=== PATIENT | female | born 1940 | race Caucasian/White ===

== ENCOUNTER 2016-07-22 17:22 | Emergency (ER) | payer OTHER ==
[~2016-07-22] VITALS: Ht 160 cm; Wt 86.4 kg
[~2016-07-22 17:22] MED LIST: ASPIR-MOX IB C325 MG PO; Ativan PO; BUMETANIDE1 M1 PO; COZAAR100 MG PO; CREON DR 12,001 EAC1 PO; CRESTOR40 MG PO; Ceftin PO; Creon 12 PO; DuoNeb IH; ECOTRIN325 MG PO; Ecotrin PO; GLYBURIDE5 MG PO; JANUMET XR 50-1 EACH; JANUMET XR 50-1 EACH PO; Janumet 50/500 PO; K-DUR10 ME2 PO; K-DUR10 MEQ PO; LEXAPRO10 MG PO; Lexapro PO; Lipitor PO; Maalox, Mylanta PO; Nitrostat,NitroQuick SL; Nizoral 2% Cream TP; PROTONIX40 MG PO; Protonix PO; TOPROL XL50 MG PO; TYLENOL REGULA325 MG PO; VYTORIN 10/11 TABLET PO; Zithromax PO
[2016-07-22] MEDS ORDERED: NAPROXEN500 MG PO (18:43)
[2016-07-22 19:31] VITALS: BP 144/71
== END 2016-07-22 19:31 | disposition home or self-care (01) ==
LOC: EME 17:22 → EXP 17:22
DX: S93.402A Sprain of unspecified ligament of left ankle, initial encounter (principal); W01.0XXA Fall on same level from slipping, tripping and stumbling without subsequent striking against object, initial encounter; E11.9 Type 2 diabetes mellitus without complications; G20 Parkinson's disease; Z79.4 Long term (current) use of insulin
CPT/HCPCS: 73610; 99281; 99284

== ENCOUNTER 2016-09-17 14:13 | Inpatient (IN) | payer OTHER ==
[~2016-09-17] VITALS: Ht 162.6 cm; Wt 82.6 kg
[~2016-09-17 14:13] MED LIST changes: +NAPROXEN500 MG PO
[2016-09-17 15:17] LABS: HEMATOCRIT 41.2 % (36.0-46.0); MCH 28.8 PG (29.0-34.0); MCHC 31.1 G/DL (30.0-36.0); MCV 92.8 FL (83-99); MEAN PLAT.VOLUME 9.8 uM^3 (9.5-12.4); PLATELET COUNT 167 K/uL (156-360); RBC DIS.WIDTH-CV 13.9 % (11.8-14.6); RBC DIS.WIDTH-SD 47.5 % (39-53); RED BLOOD COUNT 4.44 M/uL (3.80-5.20); WHITE BLOOD COUNT 7.5 K/uL (4.1-10.2)
[2016-09-17 15:30] LABS: CHLORIDE 105 mEq/L (99-109); POTASSIUM 5.4 mEq/L (3.7-5.4); SODIUM 134 mEq/L (136-147)
[2016-09-17 15:31] LABS: GLUCOSE 124 mg/dL (70-99)
[2016-09-17 15:33] LABS: ANION GAP 7 MEQ/L (2-14)
[2016-09-17 15:35] LABS: GFR ESTIMATE (CALCULATED) 20 mL/min/
[2016-09-17 15:36] LABS: UREA NITROGEN (BUN) 35 mg/dL (9-23)
[2016-09-17 15:37] LABS: TROP-I INTERPRETATION NEGATIVE; TROPONIN-I < 0.01 ng/mL (0.0-0.30)
[2016-09-17] MEDS ORDERED: KLOR-CON 1010 ME1 PO (16:45)
[2016-09-17] MEDS ORDERED: OMEPRAZOLE40 M1 PO (16:46)
[2016-09-17] MEDS ORDERED: CARBIDOPA/LEVO1 EACH PO (16:46)
[2016-09-17] MEDS ORDERED: RASAGILINE MES0.5 MG PO (16:47)
[2016-09-17] MEDS ORDERED: CREON DR 12,001 EAC1 PO (16:47)
[2016-09-17] MEDS ORDERED: CARVEDILOL6.25 MG PO (16:47)
[2016-09-17] MEDS ORDERED: FUROSEMIDE20 MG PO (16:48)
[2016-09-17] MEDS ORDERED: ROSUVASTATIN CA40 MG PO (16:48)
[2016-09-17] MEDS ORDERED: TRADJENTA5 MG PO (16:49)
[2016-09-17] MEDS ORDERED: ASPIR 8181 M1 PO (16:49)
[2016-09-17] MEDS ORDERED: NITROSTAT0.4 MG SL (16:49)
[2016-09-17] MEDS ORDERED: PROAIR HFA8.5 GM IH (16:50)
[2016-09-17] MEDS ORDERED: SYSTANE BALANCE10 ML RIGHT EYE (16:50)
[2016-09-17] MEDS ORDERED: FISH OIL 1,001000 M2 PO (16:50)
[2016-09-17 19:50] VITALS: BP 91/53
[2016-09-17 21:24] LABS: POINT-OF-CARE METER ID UU14162508
[2016-09-18] VITALS (7 sets, daily range): BP systolic 73–141; BP diastolic 43–66
[2016-09-18 06:51] LABS: POINT-OF-CARE METER ID UU14162508
[2016-09-18 08:39] LABS: ADD MIUA? YES; BILIRUBIN NEGATIVE; BLOOD NEGATIVE; COLOR YELLOW ((YELLOW)); GLUCOSE (STRIP) NEGATIVE; KETONES NEGATIVE; LEUKOCYTES SMALL; NITRITE NEGATIVE; PROTEIN (STRIP) NEGATIVE; SPECIFIC GRAVITY 1.011 (1.000-1.030); UROBILINOGEN 0.2 MG/DL (0.2-1.0)
[2016-09-18 08:54] LABS: BACTERIA RARE /HPF; EPITHELIAL CELLS RARE /HPF; MUCUS TRACE /LPF; RED BLOOD CELLS 0-5 /HPF (0-5); UCUL ADDED? NO
[2016-09-18 09:01] LABS: ALKALINE PHOSPHATASE 87 IU/L (3-129); ANION GAP 8 MEQ/L (2-14); CHLORIDE 109 MEQ/L (99-109); GFR ESTIMATE (CALCULATED) 42 mL/min/; GLUCOSE 96 mg/dL (70-99); HEMATOCRIT 34.5 % (36.0-46.0); MCH 29.6 PG (29.0-34.0); MCHC 31.9 G/DL (30.0-36.0); MCV 92.7 FL (83-99); MEAN PLAT.VOLUME 9.9 uM^3 (9.5-12.4); PLATELET COUNT 125 K/uL (156-360); POTASSIUM 4.4 MEQ/L (3.7-5.4); RBC DIS.WIDTH-CV 13.9 % (11.8-14.6); RBC DIS.WIDTH-SD 47.5 % (39-53); RED BLOOD COUNT 3.72 M/uL (3.80-5.20); SAMPLE HEMOLYSIS CHECK 0; SAMPLE ICTERIC CHECK 0; SAMPLE LIPEMIA CHECK 0; SODIUM 139 MEQ/L (136-147); TOTAL BILIRUBIN 1.5 MG/DL (0.0-1.0); UREA NITROGEN (BUN) 23 mg/dL (9-23)
[2016-09-18 09:14] LABS: WHITE BLOOD COUNT 4.2 K/uL (4.1-10.2)
[2016-09-18 11:53] LABS: POINT-OF-CARE METER ID UU14162508
[2016-09-18 17:25] LABS: POINT-OF-CARE METER ID UU14162508
[2016-09-18 21:36] LABS: POINT-OF-CARE METER ID UU14162508
[2016-09-19 07:11] LABS: HEMATOCRIT 34.2 % (36.0-46.0); MCH 29.4 PG (29.0-34.0); MCHC 31.9 G/DL (30.0-36.0); MCV 92.2 FL (83-99); PLATELET COUNT 127 K/uL (156-360); RBC DIS.WIDTH-CV 13.8 % (11.8-14.6); RBC DIS.WIDTH-SD 46.7 % (39-53); RED BLOOD COUNT 3.71 M/uL (3.80-5.20); WHITE BLOOD COUNT 3.4 K/uL (4.1-10.2)
[2016-09-19 07:38] LABS: ANION GAP 7 MEQ/L (2-14); CHLORIDE 111 MEQ/L (99-109); GFR ESTIMATE (CALCULATED) > 59 mL/min/; GLUCOSE 88 mg/dL (70-99); POTASSIUM 3.9 MEQ/L (3.7-5.4); SAMPLE HEMOLYSIS CHECK 0; SAMPLE ICTERIC CHECK 0; SAMPLE LIPEMIA CHECK 0; SODIUM 141 MEQ/L (136-147); UREA NITROGEN (BUN) 13 mg/dL (9-23)
[2016-09-19 08:33] VITALS: BP 138/70
[2016-09-19 11:36] LABS: POINT-OF-CARE METER ID UU13113694
[2016-09-19 12:15] VITALS: BP 129/65
[2016-09-19 12:45] LABS: POINT-OF-CARE METER ID UU13113819; POINT-OF-CARE USER ID 515036437
[2016-09-19 14:02] VITALS: BP 126/71
[2016-09-19] MEDS ORDERED: DEXILANT60 MG PO (19:29)
[2016-09-19 19:52] VITALS: BP 133/62
== END 2016-09-19 20:30 | disposition home or self-care (01) | DRG 392 ==
LOC: EME 14:13 → 2EAST 17:50 → EDOF 17:50 → 2EAST 19:25
PROVIDERS: Emergency Medicine; Internal Medicine; Internal Medicine Gastroenterology
PROC: 0DB68ZX Excision of Stomach, Via Natural or Artificial Opening Endoscopic, Diagnostic (ICD-10-PCS; principal; 2016-09-19)
DX: K29.60 Other gastritis without bleeding (principal); N17.9 Acute kidney failure, unspecified; J44.9 Chronic obstructive pulmonary disease, unspecified; E11.9 Type 2 diabetes mellitus without complications; R13.10 Dysphagia, unspecified; I10 Essential (primary) hypertension; K21.9 Gastro-esophageal reflux disease without esophagitis; E86.0 Dehydration; I25.10 Atherosclerotic heart disease of native coronary artery without angina pectoris; R11.10 Vomiting, unspecified; K44.9 Diaphragmatic hernia without obstruction or gangrene; E66.9 Obesity, unspecified; F70 Mild intellectual disabilities; Z90.49 Acquired absence of other specified parts of digestive tract; I25.2 Old myocardial infarction
CPT/HCPCS: 71020; 80048; 80053; 80069; 81003; 82948; 83605; 84484; 85027; 87040; 88305; 88342 TC; 93005; 99202; 99281; 99285; C9113; J1650; J1815; J2765; J3010; J7030; S0030